=== PATIENT | female | born 1995 | race American Indian/Alaskan Native ===

== ENCOUNTER 2020-02-09 20:38 | Inpatient (IN) | payer MEDICAID ==
[2020-02-09] MEDS ORDERED: ePHEDrine SULFATE 50 MG/1 ML INJ IV PRN (22:14)
[2020-02-09] MEDS ORDERED: LIDOCAINE (2%) 20 MG/1 ML VIAL 20 ML MDV INFILTRATI ONE (22:14)
[2020-02-09] MEDS ORDERED: TERBUTALINE 1 MG/1 ML INJ SUB-Q PRN (22:14)
[2020-02-09] MEDS ORDERED: fentaNYL 100 MCG/2 ML INJ IV PRN (22:14)
[2020-02-09] MEDS ORDERED: MINERAL OIL 30 ML ORAL LIQD PO PRN (22:14)
--- NOTE | 2020-02-09 22:35 | History and Physical Report ---
History of Present Illness Date of examination: 02/09/20 Date of admission: 02/09/20 20:38 Chief complaint: Here for scheduled induction of labor. History of present illness: 24 year old presents for scheduled induction of labor. Patient received care at [facility] and records are available. LMP 05/09/2019. EDC 02/13/2020 (based on LMP and confirmed by 12.6 week US). significant for the following: anemia (supplemented with iron), ASC-US pap, class 3 obesity (BMI 50), LGA, trichomonas (treated, BRANDI negative), UTI (treated with Macrobid). labs are as follows: A+, antibody screen negative, rubella immune, hepatitis B surface antigen negative, HIV negative, RPR nonreactive, gonorrhea negative, chlamydia negative, trichomonas positive/negative, varicella immune, 1 hour sugar test 111 (119 on repeat), GBS negative, AFP negative, hemoglobin electrophoresis AA. Past History Past Medical History: other (obesity) Past Surgical History: other (jaw surgery 2012) [facility] History: hepatitis B, trichomonas (treated and cured). denies: chlamydia, gonorrhea Family/Genetic History: diabetes, hypertension, cancer, other (chronic bronchitis) Social history: single, lives with family. denies: smoking, alcohol abuse, prescription drug abuse, IV drug use - Obstetrical History Expected Date of Delivery: 02/13/20 Actual Gestation: 39 Week(s) 3 Day(s) : 1 Para: 0 Hx # Term Pregnancies: 0 Number of Pregnancies: 0 Spontaneous Abortions: 0 Induced : 0 Number of Living Children: 0 Medications and Allergies Allergies Allergy/AdvReac Type Severity Reaction Status Date / Time No Known Allergies Allergy Unverified 02/09/20 21:28 Home Medications Medication Instructions Recorded Confirmed Last Taken Type Low Iron Tablet 1 tab PO DAILY 02/09/20 02/09/20 02/07/20 History Active Meds: Active Medications Ephedrine Sulfate (Ephedrine Sulfate) 10 mg IV Q2M PRN PRN Reason: Hypotension Fentanyl (Sublimaze) 100 mcg IV Q2H PRN PRN Reason: Pain,Severe (7-10) LABOR PAIN Oxytocin/Sodium Chloride (Pitocin/Ns 20 Unit/1000ml Drip) 20 units in 1,000 mls @ 125 mls/hr IV DIRECT VIOLETA Oxytocin/Sodium Chloride (Pitocin/Ns 30 Unit/500ml) 30 units in 500 mls @ 1 mls/hr IV TITR VIOLETA; Protocol Lactated Ringer's (Lactated Ringers) 1,000 mls @ 125 mls/hr IV DIRECT VIOLETA Lidocaine (Xylocaine 2%) 20 ml INFILTRATI ONCE ONE Stop: 02/09/20 22:15 Mineral Oil (Mineral Oil) 30 ml PO QHS PRN PRN Reason: Constipation Terbutaline Sulfate (Brethine) 0.25 mg SUB-Q ONCE PRN PRN Reason: Hyperstimulation/Hypertonicity Review of Systems All systems: negative (contractions) - Vital Signs Vital signs: Vital Signs Temp Pulse Resp BP Pulse Ox 99.2 F 83 16 139/79 100 02/09/20 21:17 02/09/20 21:17 02/09/20 21:17 02/09/20 21:17 02/09/20 21:17 Temp Pulse Resp BP Pulse Ox 99.2 F 82 16 139/79 100 02/09/20 21:17 02/09/20 21:22 02/09/20 21:17 02/09/20 21:18 02/09/20 21:22 - Physical Exam Abdomen: Positive: normal appearance, soft. Negative: distention, tenderness, rigidity Genitourinary (Female): Positive: normal external genitalia, normal perenium. Negative: perineal/vulvar lesions (no lesions seen on careful exam with bright light upon admission) Vagina: Positive: normal moisture Uterus: Positive: enlarged. Negative: tender Anus/Rectum: Positive: normal perianal skin Extremities: Negative: tenderness, edema - Obstetrical FHR: category 1 Uterine Contraction Monitor Mode: External Cervical Dilatation: 2 Cervical Effacement Percentage: 50 station: -3 Uterine Contraction Pattern: Irregular Uterine Contraction Intensity: Mild Results All other labs normal. Assessment and Plan A: at 39 weeks, 3 days gestation. Morbid obesity. GBS negative. P: Admit. EFM. Cervical ripening and induction of labor due to MO. Discussed with patint risks and benefts of cervical ripening and induction of labor. Patient consented to cervical ripening and induction of labor.
[2020-02-09] MEDS: LACTATED RINGERS 1,000 ML IV SCH (22:54)
[2020-02-09] MEDS ORDERED: OXYTOCIN DRIP 30 UNITS/500 ML BAG IV SCH (23:00)
--- NOTE | 2020-02-10 01:35 | Ultrasound Report ---
ULTRASOUND OBSTETRIC, 02/10/2020 CLINICAL INFORMATION/INDICATION: Estimated weight COMPARISON: No prior studies are available for comparison FINDINGS: There is a single intrauterine . BPD = 9.8 cm = 39 weeks, 6 day(s). Head circumference = 26.7 cm = 29 weeks, 1 day(s). Abdominal circumference = 33.3 cm = 37 weeks, 1 day(s). Femur length = 7.6 cm = 39 weeks, 0 day(s). Overall estimated sonographic age = 36 weeks, 2 day(s). heart rate is 155 beats per minute. Estimated weight is 6 lbs. 12 oz. position is cephalic. Placenta is anterior and grade 1 . Amniotic fluid volume measures 7.2 cm which is the lower end of normal. Impression: 1. Single living intrauterine with estimated sonographic age of 36 weeks, 2 day(s). Signer Name: Veronica North MD Signed: 02/10/2020 1:31 AM Workstation Name: [id number]
[2020-02-10 01:50] LABS: Hematocrit 29.5 % (30.3-42.9); Hemoglobin 9.4 gm/dl (10.1-14.3); Mean Corpuscular HGB Conc 32 % (30-34); Platelet Count 241 K/mm3 (140-440); Red Blood Count 4.35 M/mm3 (3.65-5.03); Red Cell Distribution Width 18.8 % (13.2-15.2)
[2020-02-10 01:55] LABS: Mean Corpuscular Volume 68 fl (79-97)
[2020-02-10] MEDS: LACTATED RINGERS 1,000 ML IV SCH ×3 (06:13→11:23)
[2020-02-10] MEDS ORDERED: NALOXONE 2 MG/2 ML INJ IV PRN (08:43)
[2020-02-10] MEDS ORDERED: ePHEDrine SULFATE 50 MG/1 ML INJ IV PRN (08:43)
[2020-02-10] MEDS ORDERED: DEXMEDETOMIDINE 200 MCG/2 ML VIAL IV ONE (08:50)
[2020-02-10] MEDS ORDERED: fentaNYL-BUPIV 2 MCG/ML-0.125% 200 MCG/100 ML BAG EPIDURAL SCH (09:00)
--- NOTE | 2020-02-10 09:27 | Event Note ---
Date: 02/10/20 Patient is receiving epidural. Last cervical exam: 4.5/100/-2.
--- NOTE | 2020-02-10 09:43 | Anesthesia Consultation ---
Anesthesia Consult and Med Hx Date of service: 02/10/20 - Airway Anesthetic Teeth Evaluation: Good ROM Head & Neck: Adequate Mental/Hyoid Distance: Adequate Mallampati Class: Class III Intubation Access Assessment: Probably Good - Pulmonary Exam CTA: Yes - Cardiac Exam Cardiac Exam: RRR - Pre-Operative Health Status ASA Pre-Surgery Classification: ASA3 Proposed Anesthetic Plan: Epidural - Pre-Anesthesia Comment Pre-Anesthesia Comments: jaw sx, no anesthesia complications - Pulmonary Hx Smoking: No Hx Asthma: No Hx Respiratory Symptoms: No SOB: No COPD: No Home Oxygen Therapy: No Hx Pneumonia: No Hx Sleep Apnea: No - Cardiovascular System Hx Hypertension: No Hx Coronary Artery Disease: No Hx Heart Attack/AMI: No Hx Angina: No Hx Percutaneous Transluminal Coronary Angioplasty (PTCA): No Hx Cardia Arrhythmia: No Hx Pacemaker: No Hx Internal Defibrillator: No Hx Valvular Heart Disease: No Hx Heart Murmur: No Hx Peripheral Vascular Disease: No - Central Nervous System Hx Neuromuscular Disorder: No Hx Seizures: No CVA: No Hx Back Pain: No Hx Psychiatric Problems: No - Gastrointestinal Hx Ulcer: No Hx Gastroesophageal Reflux Disease: Yes - Endocrine Hx Renal Disease: No Hx End Stage Renal Disease: No Hx Cirrhosis: No Hx Liver Disease: No Hx Insulin Dependent Diabetes: No Hx Non-Insulin Dependent Diabetes: No Hx Thyroid Disease: No Hx Hypothyroidism: No Hx Hyperthyroidism: No - Hematic Hx Anemia: Yes Hx Sickle Cell Disease: No - Other Systems Hx Alcohol Use: No Hx Substance Use: No Hx Cancer: No Hx Obesity: Yes
--- NOTE | 2020-02-10 09:48 | Progress Note ---
Labor Epidural - Labor Epidural Start Time: 08:54 Stop Time: 09:04 Performed by:: ABIGAIL BEAN Procedure: Patient is requesting a laboring epidural for laboring pain. Patient IDed, H&P reviewed, all questions and concerns were answered, and consent was signed. Timeout was performed at bedside. Patient in sitting position. Sterile prep and drape was performed. [3] ml of 1% lidocaine skin wheal at L[3]- L [4]. 18- gauge Tuohy epidural needle was advanced to loss of resistance with air technique to 7cm. Negative CSF negative blood via Tuohy needle. #27g Spinal needle clear, free flowing CSF, Pecedex 10 mcg. Epidural catheter advanced to [14] centimeters. [negative] Aspiration [negative] test dose. Sterile dressing applied. Patient tolerated procedure.
[2020-02-10] MEDS: OXYTOCIN 20 UNIT/1000ML DRIP 20 UNITS/1,000 ML BAG IV SCH ×2 (13:59→14:32)
--- NOTE | 2020-02-10 15:29 | Ultrasound Report ---
OBSTETRIC ULTRASOUND INDICATION: EFW, growth percentiles COMPARISON: One day prior TECHNIQUE: Transabdominal imaging was performed. FINDINGS: Single viable intrauterine is identified. lie: Cephalic. Heart rate: 121 bpm. measurements are as follows: Biparietal diameter 9.3 cm, 37 weeks 6 days Head circumference 31.8 cm, 35 weeks 5 days Abdominal circumference 33.0 cm, 36 weeks 6 days Femur length 7.6 cm, 38 weeks 6 days Amniotic fluid index is 11.4 cm, within normal limits. There is a grade 1 anterior/fundal placenta. C ervical length was not measured. CONCLUSION: Single viable intrauterine currently in cephalic position. Amniotic fluid index is within n ormal limits. Amniotic fluid index is 11.4 cm on today's exam, measured at 7.2 cm yesterday. Signer Name: Rojas Martinez MD Signed: 02/10/2020 3:25 PM Workstation Name: [email or web address]
--- NOTE | 2020-02-10 16:28 | Procedure Note ---
OB Delivery Note - Delivery Date of Delivery: 02/03/20 Surgeon: YOLANDE GARRETT Estimated blood loss: 300cc - Vaginal Delivery presentation: vertex Delivery position: OA Intrapartum events: none Delivery induction: oxytocin Delivery monitor: external FHT, external uterine Route of delivery: Delivery placenta: spontaneous Delivery cord: 3 umbilical vessels Episiotomy: none Delivery laceration: other (partial 3rd degree laceration) Anesthesia: epidural Delivery comments: Spontaneous vaginal delivery at 13:39 of liveborn male weighing 9 lb. 7.3 oz. over partial 3rd degree perineal laceration with apgars of 9/9. Epidural anesthesia. Baby vigorous and cried immediately after ; baby placed skin to skin with mom right away. Bulb suctioned baby and dried with warm towels. 3 vessel cord double clamped and cut after cessation of pulsation. Spontaneous delivery of intact placenta and membranes by quiles mechanism. EBL 300 cc. Pitocin to IV fluids after delivery of placenta. Fundus firm and midline. Dr. Howard called to bedside for perineal repair. Partial 3rd degree laceration repaired by Dr. Howard. No other lacerations noted. Sponge count correct. Instrument count correct. Vaginal sweep negative. Mother and baby stable.
[2020-02-10] MEDS ORDERED: ACETAMINOPHEN 325 MG TAB PO PRN (16:34)
[2020-02-10] MEDS ORDERED: diphenhydrAMINE 25 MG CAP PO PRN (16:34)
[2020-02-10] MEDS ORDERED: MAGNESIUM HYDROXIDE (MOM) ORAL LIQD UDC PO PRN (16:34)
[2020-02-10] MEDS ORDERED: LANOLIN/ZINC/DIMETHICONE (LANSINOH) 7 GM TP PRN (16:34)
[2020-02-10] MEDS ORDERED: PROMETHAZINE 25 MG TAB PO PRN (16:34)
[2020-02-10] MEDS ORDERED: ONDANSETRON 4 MG/2 ML INJ IV PRN (16:34)
[2020-02-10] MEDS ORDERED: PROMETHAZINE 25 MG RECT SUPP PR PRN (16:34)
--- NOTE | 2020-02-10 16:34 | Event Note ---
Date: 02/10/20 Called to see patient by Ms Vicente AYALA regarding perineal laceration with partial anal sphincter tear. My exam revealed a partial transection of the transverse perineal muscle, and a partial transection of the anal sphincter. The anal sphincter was reapproximated using interrupted stitches of 2-0 Vicryl. The transverse perineal muscle was reapproximated using interrupted stitches of 3-0 Vicryl. The skin was reapproximated using interrupted stitches of 3-0 Vircyl. Blood loss during the procedure was scant.
[2020-02-10] MEDS ORDERED: ONDANSETRON 4 MG/2 ML INJ IV ONE (18:00)
[2020-02-10] MEDS: IBUPROFEN 600 MG TAB PO SCH ×2 (19:37→23:07)
[2020-02-10 20:38] LABS: Basophils % (Auto) 0.2 % (0.0-1.8); Eosinophils # (Auto) 0.1 K/mm3 (0.0-0.4); Eosinophils % (Auto) 0.5 % (0.0-4.3); Hematocrit 29.6 % (30.3-42.9); Hemoglobin 9.3 gm/dl (10.1-14.3); Lymphocytes # (Auto) 0.9 K/mm3 (1.2-5.4); Mean Corpuscular HGB Conc 31 % (30-34); Monocytes % (Auto) 8.2 % (0.0-7.3); Platelet Count 234 K/mm3 (140-440); Red Blood Count 4.36 M/mm3 (3.65-5.03); Red Cell Distribution Width 18.6 % (13.2-15.2)
[2020-02-10 20:46] LABS: Mean Corpuscular Volume 68 fl (79-97)
[2020-02-10 21:02] LABS: Alanine Aminotransferase 8 units/L (7-56); Albumin 3.1 g/dL (3.9-5); BUN/Creatinine Ratio 10; Blood Urea Nitrogen 5 mg/dL (7-17); Calcium 9.3 mg/dL (8.4-10.2); Hemolysis Index 0; Uric Acid 2.7 mg/dL (3.5-7.6)
--- NOTE | 2020-02-10 22:12 | Post Anesthesia Evaluation ---
- Post Anesthesia Evaluation Patient Participated: Yes Airway Patent: Yes Stable Respiratory Function: Yes Nausea/Vomiting: No Temp > 96.8F: Yes Pain Manageable: Yes Adequeate Hydration: Yes Anesthesia Complications: No Block Receding Appropriately: Yes Patient on Ventilator: No
[2020-02-10] MEDS: WITCH HAZEL/ GLYCERIN PAD TP PRN (23:07)
[2020-02-10] MEDS: DOCUSATE SODIUM 100 MG CAP PO SCH (23:07)
[2020-02-11 03:34] LABS: Hematocrit 23.8 % (30.3-42.9); Hemoglobin 7.9 gm/dl (10.1-14.3)
[2020-02-11] MEDS: IBUPROFEN 600 MG TAB PO SCH ×3 (05:36→17:55)
[2020-02-11] MEDS: FERROUS SULFATE 325 MG TAB PO SCH (09:59)
[2020-02-11] MEDS: DOCUSATE SODIUM 100 MG CAP PO SCH ×2 (09:59→21:55)
[2020-02-11] MEDS: HYDROcodone/ACETAMINOPHEN 5-325 MG TAB PO PRN ×2 (14:19→21:55)
--- NOTE | 2020-02-11 15:59 | Progress Note ---
Objective - Vital Signs Latest vital signs: Vital Signs Temp Pulse Resp BP BP Pulse Ox 02/11/20 14:19 20 02/11/20 12:56 91 H 20 151/88 96 02/11/20 12:15 98.7 F 91 H 20 150/95 98 02/11/20 12:11 20 02/11/20 07:57 98.2 F 89 20 136/67 97 02/11/20 01:09 98.7 F 108 H 20 139/73 97 02/10/20 18:25 98.7 F 61 20 133/64 02/10/20 17:53 97.2 F L 55 L 02/10/20 17:38 67 150/77 02/10/20 17:23 70 126/84 02/10/20 17:08 81 144/89 02/10/20 16:54 64 159/81 02/10/20 16:38 73 142/61 02/10/20 16:23 69 144/70 Intake and Output 02/10/20 02/11/20 02/11/20 23:59 07:59 15:59 Intake Total 200 200 440 Output Total 1200 500 Balance -1000 -300 440 Intake: Oral 200 200 440 Output: Urine 300 500 Void 300 500 Urine/Stool Mix 900 Other: Total, Intake Amount 200 100 240 Total, Output Amount 300 200 # Voids Void 1 Estimated Blood Loss 300 - Labs Labs: Abnormal lab results 02/10/20 02/10/20 02/11/20 Range/Units 20:23 20:23 03:01 WBC 12.3 H (4.5-11.0) K/mm3 Hgb 9.3 L 7.9 L (10.1-14.3) gm/dl Hct 29.6 L 23.8 L (30.3-42.9) % MCV 68 L (79-97) fl MCH 21 L (28-32) pg RDW 18.6 H (13.2-15.2) % Lymph % (Auto) 7.0 L (13.4-35.0) % [place] % (Auto) 8.2 H (0.0-7.3) % Lymph # 0.9 L (1.2-5.4) K/mm3 [place] # 1.0 H (0.0-0.8) K/mm3 Seg Neutrophils % 84.1 H (40.0-70.0) % Seg Neutrophils # 10.3 H (1.8-7.7) K/mm3 Carbon Dioxide 19 L (22-30) mmol/L BUN 5 L (7-17) mg/dL Creatinine 0.5 L (0.6-1.2) mg/dL Uric Acid 2.7 L (3.5-7.6) mg/dL Lactate Dehydrogenase 204 H (91-180) units/L Albumin 3.1 L (3.9-5) g/dL
--- NOTE | 2020-02-11 17:08 | Progress Note ---
Assessment and Plan A: day 1 S/P . Anemia. P: Supplement with iron. Anticipate discharge home tomorrow if patient continues to do well. Subjective - Subjective Date of service: 02/11/20 Principal diagnosis: day 1 S/P Interval history: day 1 S/P . Doing well. Patient reports: appetite normal, voiding normally, pain well controlled, flatus, ambulating normally, no dizzy ambulation, no nauseated [place]: doing well Objective - Vital Signs Latest vital signs: Vital Signs Temp Pulse Resp BP BP Pulse Ox 02/11/20 16:37 98.1 F 100 H 20 134/72 99 02/11/20 14:19 20 02/11/20 12:56 91 H 20 151/88 96 02/11/20 12:15 98.7 F 91 H 20 150/95 98 02/11/20 12:11 20 02/11/20 07:57 98.2 F 89 20 136/67 97 02/11/20 01:09 98.7 F 108 H 20 139/73 97 02/10/20 18:25 98.7 F 61 20 133/64 02/10/20 17:53 97.2 F L 55 L 02/10/20 17:38 67 150/77 02/10/20 17:23 70 126/84 02/10/20 17:08 81 144/89 Intake and Output 02/11/20 02/11/20 02/11/20 07:59 15:59 23:59 Intake Total 200 440 Output Total 500 Balance -300 440 Intake: Oral 200 440 Output: Urine 500 Void 500 Other: Total, Intake Amount 100 240 Total, Output Amount 200 # Voids Void 1 - Exam Cardiovascular: Present: Regular rate, Normal S1, Normal S2 Lungs: Present: Clear to auscultation Abdomen: Present: normal appearance, soft. Absent: distention, tenderness, guarding, rigidity Uterus: Present: normal, firm, fundal height below umbilicus. Absent: bogginess, tenderness Extremities: Present: normal. Absent: tenderness, edema - Labs Labs: Abnormal lab results 02/10/20 02/10/20 02/11/20 Range/Units 20:23 20:23 03:01 WBC 12.3 H (4.5-11.0) K/mm3 Hgb 9.3 L 7.9 L (10.1-14.3) gm/dl Hct 29.6 L 23.8 L (30.3-42.9) % MCV 68 L (79-97) fl MCH 21 L (28-32) pg RDW 18.6 H (13.2-15.2) % Lymph % (Auto) 7.0 L (13.4-35.0) % [place] % (Auto) 8.2 H (0.0-7.3) % Lymph # 0.9 L (1.2-5.4) K/mm3 [place] # 1.0 H (0.0-0.8) K/mm3 Seg Neutrophils % 84.1 H (40.0-70.0) % Seg Neutrophils # 10.3 H (1.8-7.7) K/mm3 Carbon Dioxide 19 L (22-30) mmol/L BUN 5 L (7-17) mg/dL Creatinine 0.5 L (0.6-1.2) mg/dL Uric Acid 2.7 L (3.5-7.6) mg/dL Lactate Dehydrogenase 204 H (91-180) units/L Albumin 3.1 L (3.9-5) g/dL
[2020-02-11] MEDS: WITCH HAZEL/ GLYCERIN PAD TP PRN (21:55)
[2020-02-12] MEDS: IBUPROFEN 600 MG TAB PO SCH ×2 (01:29→12:58)
[2020-02-12] MEDS: HYDROcodone/ACETAMINOPHEN 5-325 MG TAB PO PRN (05:55)
[2020-02-12] MEDS: FERROUS SULFATE 325 MG TAB PO SCH (09:52)
[2020-02-12] MEDS: DOCUSATE SODIUM 100 MG CAP PO SCH (09:52)
--- NOTE | 2020-02-12 11:13 | Discharge Summary ---
Providers - Providers Date of Admission: 02/09/20 20:38 Date of discharge: 02/12/20 Attending physician: ADELITA DUNN Primary care physician: ADELITA DUNN Hospitalization Reason for admission: induction of labor Delivery: Episiotomy: none Laceration: 3rd degree (healing as expected) Other procedures: none complications: none Discharge diagnosis: IUP at term delivered, other (anemia) [place] baby: male Hospital course: See admission H & P; OB delivery summary and PP progress notes Condition at discharge: Stable Disposition: DC-01 TO HOME OR SELFCARE - Discharge Diagnoses (1) Status post normal vaginal delivery Status: Acute (2) Anemia Status: Acute Qualifiers: Anemia type: iron deficiency (3) PIH ( induced hypertension) Status: Acute Plan - Discharge Medications Prescriptions: Ferrous Sulfate [Feosol 325 MG tab] 325 mg PO QDAY 30 Days #30 tablet labetaloL [Labetalol 100mg TAB] 200 mg PO BID 7 Days #14 tablet Ibuprofen [Motrin 600 MG tab] 600 mg PO Q6H #28 tablet - Provider Discharge Summary Activity: routine, no sex for 6 weeks, no heavy lifting 4 weeks, no strenuous exercise Diet: other (Iron rich diet) Instructions: routine Additional instructions: [] Smoking cessation referral if applicable(refer to patient education folder for contact #) [] Refer to [facility] Booklet Call your doctor immediately for: * Fever > 100.5 * Heavy vaginal bleeding ( >1 pad per hour) * Severe persistent headache * Shortness of breath * Reddened, hot, painful area to leg or breast * Drainage or odor from incision. * Keep vaginal incision site clean and dry at all times and follow doctor's instructions regarding bathing/showering * F/U at office in 7 days for B/P check - Follow up plan Follow up: ADELITA DUNN MD [Primary Care Provider] - 7 Days Forms: [facility] Discharge Summary
[2020-02-12 12:35] VITALS: BP 143/81
[2020-02-13] MEDS ORDERED: LIDOCAINE (1%) 10 MG/1 ML VIAL 20 ML MDV ONE (00:54)
== END 2020-02-12 13:28 | disposition home or self-care (01) | DRG 775 ==
LOC: LD 20:38 → OB 02-10 18:07
PROVIDERS: ADMIT Obstetrics & Gynecology; ATTEND Obstetrics & Gynecology
PROC: 10E0XZZ Delivery of Products of Conception, External Approach (ICD-10-PCS; principal; 2020-02-10)
PROC: 3E0R3BZ Introduction of Anesthetic Agent into Spinal Canal, Percutaneous Approach (ICD-10-PCS; 2020-02-10)
PROC: 00HU33Z Insertion of Infusion Device into Spinal Canal, Percutaneous Approach (ICD-10-PCS; 2020-02-10)
PROC: 0DQR0ZZ Repair Anal Sphincter, Open Approach (ICD-10-PCS; 2020-02-10)
PROC: 3E033VJ Introduction of Other Hormone into Peripheral Vein, Percutaneous Approach (ICD-10-PCS; 2020-02-10)
DX: O13.4 Gestational [pregnancy-induced] hypertension without significant proteinuria, complicating childbirth (principal); O99.214 Obesity complicating childbirth; E66.01 Morbid (severe) obesity due to excess calories; K21.9 Gastro-esophageal reflux disease without esophagitis; O99.62 Diseases of the digestive system complicating childbirth; O90.81 Anemia of the puerperium; D50.9 Iron deficiency anemia, unspecified; O70.20 Third degree perineal laceration during delivery, unspecified; Z37.0 Single live birth; Z3A.39 39 weeks gestation of pregnancy; Z83.3 Family history of diabetes mellitus; Z82.49 Family history of ischemic heart disease and other diseases of the circulatory system; Z80.9 Family history of malignant neoplasm, unspecified
CPT/HCPCS: 36415; 76815; 76816; 80053; 83615; 84550; 85014; 85018; 85025; 85027; 86850; 86900; 86901; 96374; G0378; J2590; J3010; J3490; J7120